=== PATIENT | male | born 1960 | race Caucasian/White ===

== ENCOUNTER → 2018-01-26 17:29 | Outpatient (CLI) | payer OTHER, SELFPAY ==
[2018-01-26 17:34] LABS: Adenovirus F 40/41, stool Not Detected (NotDetected); Astrovirus Not Detected (NotDetected); Campylobacter Not Detected (NotDetected); Cryptosporidium Not Detected (NotDetected); Cyclospora Cayetanesis Not Detected (NotDetected); Entamoeba histolytica Not Detected (NotDetected); Enteroaggregative E coli Not Detected (NotDetected); Enteropathogenic E coli Not Detected (NotDetected); Enterotoxigenic E coli Not Detected (NotDetected); Giardia lamblia Not Detected (NotDetected); Norovirus Not Detected (NotDetected); Plesimonas Shigalloides, PCR Not Detected (NotDetected); Rotavirus A Not Detected (NotDetected); Salmonella, PCR Not Detected (NotDetected); Sapovirus Not Detected (NotDetected); Shiga-like toxin E coli Not Detected (NotDetected); Shigella Enterovasive E coli Not Detected (NotDetected); Vibrio Cholerae Not Detected (NotDetected); Vibrio, PCR Not Detected (NotDetected); Yersinia Entercolitica, PCR Not Detected (NotDetected)
[2018-01-26 21:30] LABS: Clostridium Difficile A/B, PCR Detected (NotDetected)
== END ==
PROVIDERS: Visit Provider Nurse Practitioner
DX: E04.1 Nontoxic single thyroid nodule (principal)
CPT/HCPCS: 87507

== ENCOUNTER → 2018-12-30 10:51 | Outpatient (CLI) | payer OTHER, SELFPAY ==
[2018-12-30 11:20] LABS: Basophils % 0.6 % (0.1-2.0); Eosinophils # 0.3 K/mm3 (0.0-0.4); Eosinophils % 4.9 % (0.1-12.0); Hematocrit 47.9 % (42.0-52.0); Hemoglobin 15.7 g/dL (14.1-18.0); Lymphocytes % 29.4 % (10-50); Mean Corpuscular HGB Conc 32.8 g/dL (31.8-35.4); Mean Corpuscular Hemoglobin 31.1 pg (27.0-31.2); Mean Corpuscular Volume 94.6 fl (80-94); Mean Platelet Volume 7.7 fl (7.4-10.4); Monocytes # 0.4 K/mm3 (0.1-1.0); Monocytes % 5.9 % (1.7-9.3); Neutrophils # 3.9 K/mm3 (1.8-7.8); Neutrophils % 59.2 % (37.0-80.0); Platelet Count 257 K/mm3 (142-424); Red Blood Count 5.06 M/mm3 (4.60-6.20); White Blood Count 6.6 K/mm3 (4.8-10.8)
[2018-12-30 12:49] LABS: Alanine Aminotransferase 22 U/L (12-78); Albumin Level 3.5 gm/dL (3.4-5.0); Albumin/Globulin Ratio 1.3 (1.1-1.8); Alkaline Phosphatase 85 U/L (46-116); Aspartate Amino Transferase 20 U/L (15-37); Bilirubin,Total 0.6 mg/dL (0.2-1.0); Blood Urea Nitrogen 20 mg/dL (7-18); Calcium 8.5 mg/dL (8.5-10.1); Carbon Dioxide 25 mmol/L (21.0-32.0); Chloride 109 mmol/L (98-107); Chol/HDL Ratio 3.2 (1-3.5); Cholesterol 149 mg/dL (140-200); Creatinine,Serum 0.96 mg/dL (0.70-1.30); Estimated Glomerular Filt Rate 80 ml/min (>60); GFR (African American) 97 ML/MIN (>60); Globulin 2.7 gm/dl (1.3-3.2); Glucose 95 mg/dL (74-106); HDL Cholesterol 47 mg/dL (27-67); LDL Cholesterol 92 mg/dL (0-130); Prostate Specific Ag Screen 2.1 ng/mL (0.0-4.0); Sodium 141 mmol/L (136-145); Thyroid Stimulating Hormone 1.66 uIU/ml (0.358-3.740); Total Protein,Serum 6.2 gm/dL (6.4-8.2); Triglycerides 48 mg/dL (30-200); VLDL Cholesterol 10 mg/dL (0-40)
[2018-12-31 18:14] LABS: Vitamin B12 606 pg/mL (232-1245); Vitamin D 25 Hydroxy 33.6 ng/mL (30.0-100.0)
== END ==
PROVIDERS: Visit Provider Family Medicine
DX: R53.83 Other fatigue (principal); Z13.220 Encounter for screening for lipoid disorders; Z12.5 Encounter for screening for malignant neoplasm of prostate
CPT/HCPCS: 36415; 80053; 80061; 82607; 82652; 83655; 84443; 85025; G0103

== ENCOUNTER → 2019-12-29 11:37 | Outpatient (CLI) | payer OTHER, SELFPAY ==
[2019-12-29 14:39] LABS: Chol/HDL Ratio 3.2 (1-3.5); Cholesterol 177 mg/dl (140-200); Glucose,Fasting 99 mg/dl (74-100); HDL Cholesterol 56 mg/dl (40-60); Triglycerides 84 mg/dl (30-150); VLDL Cholesterol 17 mg/dL (0-40)
[2019-12-29 14:51] LABS: Direct LDL Cholesterol 110.38 mg/dL (100-129)
[2019-12-29 15:11] LABS: Prostate Specific Ag, Diagnost 2.44 ng/ml (0.0-4.0)
== END ==
PROVIDERS: Visit Provider Family Medicine
DX: Z13.1 Encounter for screening for diabetes mellitus (principal); Z13.220 Encounter for screening for lipoid disorders; Z12.5 Encounter for screening for malignant neoplasm of prostate
CPT/HCPCS: 36415; 80061; 82947; 84153

== ENCOUNTER → 2020-10-01 14:42 | Outpatient (CLI) | payer OTHER, SELFPAY ==
[2020-10-01 15:51] LABS: Anion Gap 13.8 mEq/L (5-15); Blood Urea Nitrogen 22 mg/dl (9-20); Calcium 9.3 mg/dl (8.4-10.2); Carbon Dioxide 29 mmol/L (22.0-30.0); Chloride 106 mmol/L (98-107); Estimated Glomerular Filt Rate 76 ml/min (>60); GFR (African American) 92 ML/MIN (>60); Glucose 101 mg/dl (74-100); Potassium 4.8 mmoL/L (3.5-5.1); Sodium 144 mmol/L (136-145)
== END ==
PROVIDERS: Visit Provider Urology
DX: R39.198 Other difficulties with micturition (principal)
CPT/HCPCS: 36415; 80048

== ENCOUNTER → 2021-01-08 09:27 | Outpatient (CLI) | payer OTHER, SELFPAY ==
[2021-01-08 10:08] LABS: Basophils # 0.1 K/mm3 (0-0.2); Basophils % 0.5 % (0.1-2.0); Eosinophils # 0.2 K/mm3 (0.0-0.4); Eosinophils % 2.3 % (0.1-12.0); Hematocrit 49.2 % (42.0-52.0); Hemoglobin 16.8 g/dL (14.1-18.0); Lymphocytes # 2.6 K/mm3 (0.7-4.5); Lymphocytes % 25.8 % (10-50); Mean Corpuscular Hemoglobin 31.2 pg (27.0-31.2); Mean Corpuscular Volume 91.8 fl (80-94); Mean Platelet Volume 7.8 fl (7.4-10.4); Monocytes # 0.5 K/mm3 (0.1-1.0); Monocytes % 5.2 % (1.7-9.3); Neutrophils # 6.6 K/mm3 (1.8-7.8); Platelet Count 270 K/mm3 (142-424); Red Blood Count 5.36 M/mm3 (4.60-6.20); Red Cell Distribution Width 13.5 % (11.5-17.5); White Blood Count 10.1 K/mm3 (4.8-10.8)
[2021-01-08 10:41] LABS: Chloride 109 mmol/L (98-107); Sodium 142 mmol/L (136-145)
[2021-01-08 10:42] LABS: Potassium 4.2 mmoL/L (3.5-5.1)
[2021-01-08 10:44] LABS: Alanine Aminotransferase 22 U/L (12-78); Albumin Level 4.1 g/dl (3.5-5.0); Albumin/Globulin Ratio 1.7 (1.1-1.8); Alkaline Phosphatase 99 U/L (38-126); Anion Gap 9.2 mEq/L (5-15); Aspartate Amino Transferase 27 U/L (17-59); Bilirubin,Total 0.7 mg/dl (0.2-1.3); Blood Urea Nitrogen 23 mg/dl (9-20); Calcium 9.4 mg/dl (8.4-10.2); Carbon Dioxide 28 mmol/L (22.0-30.0); Cholesterol 176 mg/dl (140-200); Estimated Glomerular Filt Rate 68 ml/min (>60); GFR (African American) 82 ML/MIN (>60); Globulin 2.4 g/dL (1.3-3.2); Glucose 100 mg/dl (74-100); Magnesium 1.9 mg/dl (1.6-2.3); Phosphorous 3.1 mg/dl (2.5-4.5); Total Protein,Serum 6.5 g/dl (6.3-8.2); Triglycerides 94 mg/dl (30-150); VLDL Cholesterol 19 mg/dL (0-40)
[2021-01-08 10:45] LABS: Chol/HDL Ratio 3.7 (1-3.5); HDL Cholesterol 47 mg/dl (40-60)
[2021-01-08 10:55] LABS: Direct LDL Cholesterol 107.53 mg/dL (100-129)
[2021-01-08 11:15] LABS: Thyroid Stimulating Hormone 2.08 uIU/mL (0.465-4.68)
[2021-01-08 12:16] LABS: Erythrocyte Sedimentation Rate 4 mm/hr (0-20)
== END ==
PROVIDERS: Visit Provider Family Medicine
DX: R07.9 Chest pain, unspecified (principal); R00.2 Palpitations; R03.0 Elevated blood-pressure reading, without diagnosis of hypertension
CPT/HCPCS: 36415; 80053; 80061; 83735; 84100; 84443; 84550; 85025; 85651

== ENCOUNTER → 2021-01-23 13:44 | Outpatient (CLI) | payer OTHER, SELFPAY ==
--- NOTE | 2021-01-23 13:48 | XR_ITS ---
PROCEDURE INFORMATION: Exam: XR Chest Exam date and time: 01/23/2021 1:48 PM Age: 60 years old Clinical indication: Chest wall pain; Additional info: Chest pain TECHNIQUE: Imaging protocol: XR of the chest. Views: 2 views. COMPARISON: No relevant prior studies available. FINDINGS: Lungs: Bilateral hyperinflation is present. No focal pneumonia or pneumothorax. Pleural spaces: There are no pleural effusions present. Heart/Mediastinum: Unremarkable. No cardiomegaly. Bones/joints: The thoracic spine demonstrates mild degenerative changes at multiple levels. IMPRESSION: 1. Bilateral hyperinflation is present. 2. No focal pneumonia or pneumothorax.
--- NOTE | 2021-01-23 14:04 | ECG_ITS ---
APPROVED REPORT Exam: Resting ECG HR:73 bpm ECG Measurements Heart Rate 73 AXES MS 140 P 70 QRSd 96 QRS -72 QT 370 T 31 QTc 407 Conclusion Normal sinus rhythm with sinus arrhythmia Left anterior fascicular block Abnormal ECG Electronically signed by : Cecil Chu MD 01/25/2021 08:40:21
== END ==
PROVIDERS: PCP Family Medicine; Visit Provider Family Medicine
DX: R07.9 Chest pain, unspecified (principal); R00.2 Palpitations; R03.0 Elevated blood-pressure reading, without diagnosis of hypertension
CPT/HCPCS: 71046; 93005

== ENCOUNTER → 2021-12-22 10:18 | Outpatient (CLI) | payer OTHER, SELFPAY ==
[2021-12-22 11:48] LABS: Alanine Aminotransferase 19 U/L (12-78); Albumin/Globulin Ratio 1.7 (1.1-1.8); Alkaline Phosphatase 102 U/L (38-126); Anion Gap 12.9 mEq/L (5-15); Aspartate Amino Transferase 27 U/L (17-59); Bilirubin,Total 0.7 mg/dl (0.2-1.3); Blood Urea Nitrogen 19 mg/dl (9-20); Calcium 9.8 mg/dl (8.4-10.2); Carbon Dioxide 30 mmol/L (22.0-30.0); Chloride 104 mmol/L (98-107); Chol/HDL Ratio 3.3 (1-3.5); Cholesterol 159 mg/dl (140-200); Estimated Glomerular Filt Rate 68 ml/min (>60); GFR (African American) 82 ML/MIN (>60); Globulin 2.3 g/dL (1.3-3.2); Glucose 97 mg/dl (74-100); HDL Cholesterol 48 mg/dl (40-60); Potassium 4.9 mmoL/L (3.5-5.1); Sodium 142 mmol/L (136-145); Total Protein,Serum 6.3 g/dl (6.3-8.2); Triglycerides 67 mg/dl (30-150); VLDL Cholesterol 13 mg/dL (0-40)
[2021-12-22 11:59] LABS: Direct LDL Cholesterol 94.66 mg/dL (100-129)
[2021-12-22 12:19] LABS: Prostate Specific Ag Screen 2.6 ng/ml (0.0-4.0)
== END ==
PROVIDERS: PCP Family Medicine; Visit Provider Family Medicine
DX: Z00.00 Encounter for general adult medical examination without abnormal findings (principal); Z12.5 Encounter for screening for malignant neoplasm of prostate
CPT/HCPCS: 36415; 80053; 80061; G0103

== ENCOUNTER → 2022-07-28 23:37 | Outpatient (CLI) | payer OTHER, SELFPAY ==
[2022-07-28 17:59] LABS: Basophils % 0.6 % (0.1-2.0); Eosinophils # 0.2 K/mm3 (0.0-0.4); Hematocrit 51.8 % (42.0-52.0); Hemoglobin 16.8 g/dL (14.1-18.0); Lymphocytes # 2.2 K/mm3 (0.7-4.5); Lymphocytes % 30.7 % (10-50); Mean Corpuscular HGB Conc 32.4 g/dL (31.8-35.4); Mean Corpuscular Hemoglobin 29.9 pg (27.0-31.2); Mean Corpuscular Volume 92.3 fl (80-94); Mean Platelet Volume 9.2 fl (7.4-10.4); Monocytes # 0.5 K/mm3 (0.1-1.0); Monocytes % 7.3 % (1.7-9.3); Neutrophils # 4.2 K/mm3 (1.8-7.8); Neutrophils % 58.4 % (37.0-80.0); Platelet Count 252 K/mm3 (142-424); Red Blood Count 5.61 M/mm3 (4.60-6.20); Red Cell Distribution Width 13.4 % (11.5-17.5); White Blood Count 7.2 K/mm3 (4.8-10.8)
[2022-07-28 18:02] LABS: Alanine Aminotransferase 22 U/L (12-78); Albumin Level 4.2 g/dl (3.5-5.0); Albumin/Globulin Ratio 1.5 (1.1-1.8); Alkaline Phosphatase 101 U/L (38-126); Anion Gap 14.3 mEq/L (5-15); Aspartate Amino Transferase 31 U/L (17-59); Bilirubin,Total 0.7 mg/dl (0.2-1.3); Blood Urea Nitrogen 17 mg/dl (9-20); Calcium 9.1 mg/dl (8.4-10.2); Carbon Dioxide 25 mmol/L (22.0-30.0); Chloride 107 mmol/L (98-107); Chol/HDL Ratio 3.1 (1-3.5); Cholesterol 172 mg/dl (140-200); Estimated Glomerular Filt Rate 75 ml/min (>60); GFR (African American) 91 ML/MIN (>60); Globulin 2.8 g/dL (1.3-3.2); Glucose 98 mg/dl (74-100); HDL Cholesterol 56 mg/dl (40-60); Potassium 4.3 mmoL/L (3.5-5.1); Sodium 142 mmol/L (136-145); Triglycerides 80 mg/dl (30-150); VLDL Cholesterol 16 mg/dL (0-40)
[2022-07-28 18:14] LABS: Direct LDL Cholesterol 98.34 mg/dL (100-129)
[2022-07-28 18:19] LABS: Hemoglobin A1C 5.4 % (4.0-6.0)
[2022-07-28 18:33] LABS: Thyroid Stimulating Hormone 1.72 uIU/mL (0.465-4.68)
== END ==
PROVIDERS: PCP Student in an Organized Health Care Education/Training Program; Visit Provider Student in an Organized Health Care Education/Training Program
DX: R22.0 Localized swelling, mass and lump, head (principal); Z13.220 Encounter for screening for lipoid disorders; E55.9 Vitamin D deficiency, unspecified; Z13.29 Encounter for screening for other suspected endocrine disorder; Z13.1 Encounter for screening for diabetes mellitus
CPT/HCPCS: 80053; 80061; 82306; 83036; 84443; 85025

== ENCOUNTER → 2022-09-09 23:42 | Outpatient (CLI) | payer MEDICAID, SELFPAY | PROVIDERS: PCP Nurse Practitioner Family; Visit Provider Nurse Practitioner Family | DX: N39.0 Urinary tract infection, site not specified (principal); B95.2 Enterococcus as the cause of diseases classified elsewhere | CPT/HCPCS: 87086; 87088; 87186 ==

== ENCOUNTER → 2023-01-22 08:34 | Outpatient (CLI) | payer OTHER, SELFPAY | PROVIDERS: PCP Student in an Organized Health Care Education/Training Program; Visit Provider Student in an Organized Health Care Education/Training Program | DX: R82.90 Unspecified abnormal findings in urine (principal); B95.7 Other staphylococcus as the cause of diseases classified elsewhere | CPT/HCPCS: 87086 ==

== ENCOUNTER 2023-05-06 18:52 | Outpatient (CLI) | payer OTHER, SELFPAY | END 2023-05-06 23:59 | LOC: LAB.DROPOF 18:52 | PROVIDERS: PCP Student in an Organized Health Care Education/Training Program; Visit Provider Student in an Organized Health Care Education/Training Program | DX: N39.0 Urinary tract infection, site not specified (principal); R31.9 Hematuria, unspecified; B96.89 Other specified bacterial agents as the cause of diseases classified elsewhere | CPT/HCPCS: 87086 ==

== ENCOUNTER 2023-06-09 18:00 | Outpatient (CLI) | payer OTHER, SELFPAY | END 2023-06-09 23:59 | disposition home or self-care (01) | LOC: LAB.DROPOF 06-10 10:06 | PROVIDERS: PCP Internal Medicine; Visit Provider Internal Medicine | DX: N39.0 Urinary tract infection, site not specified (principal); R31.9 Hematuria, unspecified | CPT/HCPCS: 87086 ==

== ENCOUNTER 2023-06-11 11:36 | Outpatient (CLI) | payer OTHER, SELFPAY ==
[2023-06-11 12:16] LABS: Basophils # 0.1 K/mm3 (0-0.2); Eosinophils # 0.2 K/mm3 (0.0-0.4); Eosinophils % 2.4 % (0.1-12.0); Hematocrit 51.6 % (42.0-52.0); Hemoglobin 16.9 g/dL (14.1-18.0); Lymphocytes % 28.8 % (10-50); Mean Corpuscular HGB Conc 32.8 g/dL (31.8-35.4); Mean Corpuscular Hemoglobin 31.3 pg (27.0-31.2); Mean Corpuscular Volume 95.3 fl (80-94); Mean Platelet Volume 8.2 fl (7.4-10.4); Monocytes # 0.5 K/mm3 (0.1-1.0); Monocytes % 6.7 % (1.7-9.3); Neutrophils # 4.2 K/mm3 (1.8-7.8); Platelet Count 248 K/mm3 (142-424); Red Blood Count 5.42 M/mm3 (4.60-6.20); Red Cell Distribution Width 13.7 % (11.5-17.5); White Blood Count 6.9 K/mm3 (4.8-10.8)
[2023-06-11 12:58] LABS: Alanine Aminotransferase 23 U/L (12-78); Albumin/Globulin Ratio 1.7 (1.1-1.8); Alkaline Phosphatase 90 U/L (38-126); Anion Gap 9.4 mEq/L (5-15); Aspartate Amino Transferase 34 U/L (17-59); Bilirubin,Total 1.1 mg/dl (0.2-1.3); Blood Urea Nitrogen 20 mg/dl (9-20); Calcium 9.3 mg/dl (8.4-10.2); Carbon Dioxide 27 mmol/L (22.0-30.0); Chloride 109 mmol/L (98-107); Chol/HDL Ratio 3.3 (1-3.5); Cholesterol 173 mg/dl (140-200); Estimated Glomerular Filt Rate 67 ml/min (>60); GFR (African American) 82 ML/MIN (>60); Globulin 2.3 g/dL (1.3-3.2); Glucose 90 mg/dl (74-100); HDL Cholesterol 52 mg/dl (40-60); Potassium 4.4 mmoL/L (3.5-5.1); Sodium 141 mmol/L (136-145); Total Protein,Serum 6.3 g/dl (6.3-8.2); Triglycerides 77 mg/dl (30-150); VLDL Cholesterol 15 mg/dL (0-40)
[2023-06-11 13:09] LABS: Direct LDL Cholesterol 107.55 mg/dL (100-129)
[2023-06-11 13:16] LABS: 25-OH Vitamin D, Total 36.8 ng/mL (30-100)
[2023-06-11 13:29] LABS: Prostate Specific Ag Screen 4.1 ng/ml (0.0-4.0); Thyroid Stimulating Hormone 0.98 uIU/mL (0.465-4.68)
[2023-06-11 13:48] LABS: Vitamin B12 869 pg/mL (239-931)
[2023-06-11 16:06] LABS: Hemoglobin A1C 5.7 % (4.0-6.0)
== END 2023-06-11 23:59 | disposition home or self-care (01) ==
LOC: LAB 11:37
PROVIDERS: PCP Internal Medicine; Visit Provider Internal Medicine
DX: R53.83 Other fatigue (principal); R10.10 Upper abdominal pain, unspecified; N39.0 Urinary tract infection, site not specified; R03.0 Elevated blood-pressure reading, without diagnosis of hypertension; N40.1 Benign prostatic hyperplasia with lower urinary tract symptoms; Z12.5 Encounter for screening for malignant neoplasm of prostate
CPT/HCPCS: 36415; 80053; 80061; 82306; 82607; 83036; 84443; 85025; G0103

== ENCOUNTER 2023-07-16 11:30 | Outpatient (CLI) | payer OTHER, SELFPAY | END 2023-07-16 23:59 | disposition home or self-care (01) | LOC: LAB.DROPOF 07-17 11:30 | PROVIDERS: PCP Student in an Organized Health Care Education/Training Program; Visit Provider Student in an Organized Health Care Education/Training Program | DX: N39.0 Urinary tract infection, site not specified (principal); R31.9 Hematuria, unspecified | CPT/HCPCS: 87086 ==

== ENCOUNTER 2023-08-13 15:21 | Outpatient (CLI) | payer OTHER, SELFPAY ==
[2023-08-15 08:10] LABS: PSA, Free 0.55 ng/mL; Prostate Specific Ag 3.6 ng/mL (0.0-4.0)
== END 2023-08-13 23:59 | disposition home or self-care (01) ==
LOC: LAB 15:22
PROVIDERS: PCP Internal Medicine; Visit Provider Urology
DX: N40.1 Benign prostatic hyperplasia with lower urinary tract symptoms (principal); R35.0 Frequency of micturition; N39.0 Urinary tract infection, site not specified
CPT/HCPCS: 36415; 84153; 84154

== ENCOUNTER 2024-10-26 09:57 | Outpatient (CLI) | payer MEDICARE, BC, SELFPAY ==
--- OUTSIDE RECORDS SUMMARY | 2024-10-26 10:14 | XMS_ITS | Encounter Summary ---
Author Organization [place] [address] Care Team Providers Care Air Quality Technician Name Role Phone Eren Cardenas Primary Care Provider Unavail able Encounter Details Date Type Department Care Team (Late st Contact Info) Description 10/25/2024 Orders Only [facility] [address] [place] [address] Ivonne Maria RMA Lipid screening (Primary Dx); Thyroid disorder screen; Vitamin D deficiency; Impaired fasting glucose; Screening for iron deficiency anemia; Need for hepatitis C screening test; Prostate cancer screening Social History Tobacco Use Types Packs/Day Years Used Date Smoking Tobacco: Never Smokeless Tobacco: Never Alcohol Use Standard Drinks/Week Comments No 0 (1 standard drink = 0.6 oz pur e alcohol) Sex and Gender Information Value Date Recorded Sex Assigned at Not on file Legal Sex Male 5:47 PM EDT Gender Identity Not on file Sexual Orientation Not on file documented as of this encounter Plan of Treatment Upcoming Encounters Date Type Department Care Team (Late Contact Info) Description 11/01/2024 11:45 AM EDT Office Visit [facility] [address] [place] [address] David Tilley MD [address] [place] [address] Scheduled Orders Name Type Priority Associated Diagnoses Orde r Schedule LIPID PANEL REFLEX Lab Routine Lipid screening 1 Occurrences starting 10/25/2024 until 10/25/2025 TSH REFLEX TO FT4 Lab Routine Thyroid disorder screen 1 Occurrences starting 10/25/2024 until 10/25/2025 HEMOGLOBIN A1C Lab Routine Impaired fasting glucose 1 Occurrences starting 10/25/2024 until 10/25/2025 COMPREHENSIVE METABOLIC PANEL Lab Routine Lipid screening 1 Occurrences starting 10/25/2024 until 10/25/2025 CBC Lab Routine Screening for iron deficiency anemia 1 Occurrences starting 10/25/2024 until 10/25/2025 HCV ANTIBODY SCREEN W/ REFLEX Lab Routine Need for hepatitis C screening test 1 Occurrences starting 10/25/2024 until 10/25/2025 PROSTATE SPECIFIC ANTIGEN (SCREENING) Lab Routine Prostate cancer screening 1 Occurrences starting 10/25/2024 until 10/25/2025 documented as of this encounter Goals Goal Patient Goal Type Associated Problems Recent Progress Patient-Stated? Author Maintain a healthy diet, exercise regularly and maintain an ideal body weight General No Ivonne Maria, RMA documented as of this encounter Visit Diagnoses Diagnosis Lipid screening- Primary Screening for lipoid disorders Thyroid disorder screen Screening for thyroid disorder Vitamin D deficiency Unspecified vitamin D deficiency Impaired fasting glucose Screening for iron deficiency anemia Need for hepatitis C screening test Special screening examination for other specified viral diseases Prostate cancer screening Special screening for malignant neoplasm of prostate documented in this encounter Care Teams Air Quality Technician Relationship Specialty Start Date End Date Eren Cardenas [address] [place] [address] [address] [place] [address] PCP - General Internal Medicine-Adolescent Medicine 07/19/12 documented as of this encounter
--- OUTSIDE RECORDS SUMMARY | 2024-10-26 10:14 | XMS_ITS | Clinical Summary ---
Author Organization [facility] Address [facility] [place] [address] Phone Care Team Providers Care Associate Designer Name Role Phone Eren Cardenas Primary Care Provider Unavail able Allergies Active Allergy Reactions Criticality Noted Date Comments Lactose Intolerance (Lactase) Diarrhea 12/20/2014 Acetaminophen Other (See Comments) 05/19/2024 CAUSES MOUTH SORES Whey Diarrhea 10/29/2020 Dietary Medications multivitamin with folic acid (THERAGRAN) 400 mcg Oral Tablet Take 1 Tablet by mouth daily. MVI Active fish oil omega 3-dha-epa 300-1,000 mg Oral Capsule, Delayed Release(E.C.) Take 2 g by mouth daily. Active cholecalciferol , vitamin D3, 25 mcg (1,000 unit) Oral Tablet Take 1 Tablet by mouth daily. Active aspirin 81 mg Oral Tablet, Chewable Take 81 mg by mouth daily as needed for Pain. Active oxyCODONE-aceta minophen (PERCOCET) 5-325 mg Oral Tablet Take 1-2 Tablets by mouth every 4 hours as needed for Acute Pain (R52). 36 Tablet 1 Active Additional Information Patient not taking.Reason: Therapy Completed, Reported on 05/19/2024 ibuprofen (ADVIL;MOTRIN) 100 mg/5 mL Oral Suspension Take 10 mg/kg by mouth every 8 hours as needed for Fever. Active methylPREDNISol one (MEDROL DOSPACK) 4 mg Oral Tablets, Dose PackIndications :Radiculopathy of cervical region follow package directions 1 Each 5 Active Additional Information Patient not taking.Reason: Therapy Completed, Reported on 05/19/2024 lactobacillus rhamnosus, GG, (CULTURELLE) 10 billion cell Oral Capsule Take 1 Capsule by mouth daily. Active diazePAM (VALIUM) 5 mg Oral TabletIndicatio ns:DDD (degenerative disc disease), cervical Take 1 tablet by mouth 2 hours prior to prior to procedure, take additional 1 tablet 1 hour prior to procedure, if needed 2 Tablet Active Additional Information Patient not taking.Reason: Therapy Completed, Reported on 05/19/2024 gabapentin (NEURONTIN) 300 mg Oral Capsule Take by mouth 3 times daily. Active pregabalin (LYRICA) 75 mg Oral Capsule Take 75 mg by mouth 2 times daily. Active Active Problems Problem Noted Date Diagnosed Date Rupture of distal biceps tendon, left, initial e ncounter 12/05/2020 Overview (12/05/2020): Added automatically from request for surgery [id number] Urinary retention 10/25/2020 Overview (10/25/2020): Added automatically from request for surgery [id number] Chronic calculous cholecystitis 12/25/2014 Encounters Date Type Department Care Team Description 10/25/2024 Orders Only [facility] [address] [place] [address] Ivonne Maria, A Lipid screening (Primary Dx); Thyroid disorder screen; Vitamin D deficiency; Impaired fasting glucose; Screening for iron deficiency anemia; Need for hepatitis C screening test; Prostate cancer screening from Last 3 Months Surgical History Surgery Date Site/Laterality Comments NASAL SEPTUM SURGERY 02/15/1987 - 02/15/1988 DENTAL SURGERY HAND SURGERY right forearm ORIF CHOLECYSTECTOMY, LAPAROSCOPIC 12/25/2014 Abdomen/N/A LAPAROSCOPIC CHOLECYSTECTOMY; Surgeon: La Shultz MD; Location: [facility] MAIN OR; Service: General CYSTOSCOPY 10/31/2020 N/A CYSTOSCOPY; Surgeon: Aashish Barboza MD; Location: [facility]; Service: Urology BICEPS TENDON REPAIR 12/09/2020 Arm Upper/Left LEFT OPEN DISTAL BICEPS TENDON REPAIR ; Surgeon: Joan Aldridge MD; Location: [facility] OR; Service: Hand Medical devices from this surgery are in the Medical Devices section. 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/DAY DUE TO WEAK BLEDDER Arthritis Family History Medical History Relation Name Comments Cancer Mother Diabetes Mother Anesth Problems Neg Hx Relation Name Status Comments Father Mother Social History Tobacco Use Types Packs/Day Years Used Date Smoking Tobacco: Never Smokeless Tobacco: Never Alcohol Use Standard Drinks/Week Comments No 0 (1 standard drink = 0.6 oz pur e alcohol) Sex and Gender Information Value Date Recorded Sex Assigned at Not on file Legal Sex Male 5:47 PM EDT Gender Identity Not on file Sexual Orientation Not on file Obstetrics History Last Filed Vital Signs Vital Sign Reading Time Taken Comments Blood Pressure 143/93 06/02/2024 12:01 PM EDT Pulse 63 06/02/2024 12:01 PM EDT Temperature 35.9 C (96.6 F) 06/02/2024 11:35 AM EDT Respiratory Rate 16 06/02/2024 12:01 PM EDT Oxygen Saturation 98% 06/02/2024 12:01 PM EDT Inhaled Oxygen Concentration - - Weight 82.6 kg (182 lb) 06/02/2024 7:36 AM EDT Height 177.8 cm (5' 10 ) 06/02/2024 7:36 AM EDT Body Mass Index 26.11 06/02/2024 7:36 AM EDT Plan of Treatment Upcoming Encounters Date Type Department Care Team (Late st Contact Info) Description 11/01/2024 11:45 AM EDT Office Visit [facility] [address] [place] [address] David Tilley MD [address] [place] [address] Health Maintenance Due Date Last Done Comments Wellness Exam Medicare 1963 Hepatitis C Screening 1976 DTaP/TDaP/Td (1 - Tdap) 1977 Cologuard 12/12/2003 Colon Cancer Screening 12/12/2003 Colonoscopy 12/12/2003 FIT 12/12/2003 Sigmoidoscopy 12/12/2003 Virtual Colonography 12/12/2003 Pneumococcal Vaccine 50+ (1 of 1 - PCV) 2008 Zoster (1 of 2) 2008 COVID-19 Vaccine (1 - 2023-2 5 season) 2024 Influenza Vaccine (#1) 2024 , 01/14/2023, 12/16/2016 Hepatitis B Vaccine Aged Out No longe r eligible based on patient's age to complete this topic Meningococcal B Vaccine Aged Out No l onger eligible based on patient's age to complete this topic Goals Goal Patient Goal Type Associated Problems Recent Progress Patient-Stated? Author Maintain a healthy diet, exercise regularly and maintain an ideal body weight General No Ivonne Maria, RMA Medical Devices Implanted Type Area Senior Associate Device Identifier Shelf Expiration Date Model / Serial / Lot Log [id number] - [employer] Modular Mini Fragment Tray - 1 - Screw Cortex 2.7mm X 14mm Self Tapping With T8 Stardrive Recess Stainless Steel Implanted:Qty: 1 on 07/20/2012 at [facility] Right: Mobile [employer]: [employer] 202.874 / / Log [id number] - [employer] Modular Mini Fragment Tray - 1 - Screw Cortex 2.7mm X 16mm Self Tapping With T8 Stardrive Recess Stainless Steel Implanted:Qty: 2 on 07/20/2012 at [facility] Right: [employer]: [employer] 202.876 / / Log [id number] - [employer] Modular Mini Fragment Tray - 1 - Screw Cortex 2.7mm X 18mm Self Tapping With T8 Stardrive Recess Stainless Steel Implanted:Qty: 2 on 07/20/2012 at [facility] Right: Mobile [employer]: [employer] 202.878 / / Log [id number] - [employer] Modular Mini Fragment Tray - 1 - Screw Locking 2.7mm X 16mm Self Tapping With T8 Stardrive Recess Implanted:Qty: 1 on 07/20/[address] [facility] [employer]: [employer] 202.216 / / Log [id number] - S[employer] Modular Mini Fragment Tray - 1 - Plate Lcp 2.7mm X 67mm 7-Hole Implanted:Qty: 1 on 07/20/2012 at [facility] Right: Dez [employer]: [employer] 249.683 / / Kt Shldr W/Ac 18in Ntnl Sut Pss Wire F/Dist Bicp Rpr - [id number] Implanted:Qty: 1 on 12/09/2020 by Joan Aldridge MD at [facility] Left: Arm [employer] [id number] 09/14/2025 [id number] / / [id number] Insurance MEDICARE [place] [address] [place] [address] MEDICARE SUPPLEMENT [facility] MEDICARE SUPPLEMENT MEDICARE [place] PART A AND B Care Teams Associate Designer Relationship Specialty Start Date End Date Eren Cardenas [address] [place] [address] PCP - General Internal Medicine-Adolescent Medicine 07/19/12
[2024-10-26 10:51] LABS: Hematocrit 49.2 % (42.0-52.0); Hemoglobin 16.6 g/dL (14.1-18.0); Immature Granulocytes % 0.3 %; Mean Corpuscular HGB Conc 33.7 g/dL (31.8-35.4); Mean Corpuscular Hemoglobin 30.5 pg (27.0-31.2); Mean Corpuscular Volume 90.3 fl (80-94); Nucleated Red Blood Cells % 0 %; Platelet Count 242 K/mm3 (142-424); Red Blood Count 5.45 M/mm3 (4.60-6.20); Red Cell Distribution Width-SD 43.0 fL; White Blood Count 7.3 K/mm3 (4.8-10.8)
[2024-10-26 11:16] LABS: Alanine Aminotransferase 18 U/L (12-78); Albumin Level 3.9 g/dl (3.5-5.0); Albumin/Globulin Ratio 1.6 (1.1-1.8); Alkaline Phosphatase 75 U/L (38-126); Anion Gap 9.4 mEq/L (5-15); Aspartate Amino Transferase 23 U/L (17-59); Bilirubin,Total 0.6 mg/dl (0.2-1.3); Blood Urea Nitrogen 21 mg/dl (9-20); Calcium 9.1 mg/dl (8.4-10.2); Carbon Dioxide 27 mmol/L (22.0-30.0); Chloride 109 mmol/L (98-107); Cholesterol 175 mg/dl (140-200); Creatinine,Serum 1.10 mg/dl (0.66-1.25); Estimated Glomerular Filt Rate 67 ml/min (>60); GFR (African American) 81 ML/MIN (>60); Globulin 2.5 g/dL (1.3-3.2); Glucose 99 mg/dl (74-100); HDL Cholesterol 42 mg/dl (40-60); Potassium 4.4 mmoL/L (3.5-5.1); Sodium 141 mmol/L (136-145); Total Protein,Serum 6.4 g/dl (6.3-8.2); Triglycerides 83 mg/dl (30-150)
[2024-10-26 11:33] LABS: Free T4 (Free Thyroxine) 0.99 ng/dl (0.78-2.19)
[2024-10-26 11:38] LABS: Hemoglobin A1C 5.7 % (4.0-6.0)
[2024-10-26 11:47] LABS: Thyroid Stimulating Hormone 2.03 uIU/mL (0.465-4.68)
[2024-10-26 12:50] LABS: Hepatitis C Ab Qual. W/ RFX NEGATIVE (Negative)
== END 2024-10-26 23:59 | disposition home or self-care (01) ==
LOC: LAB 10:01
PROVIDERS: PCP Family Medicine; Visit Provider Family Medicine
DX: Z00.00 Encounter for general adult medical examination without abnormal findings (principal); R73.01 Impaired fasting glucose; Z12.5 Encounter for screening for malignant neoplasm of prostate; R53.83 Other fatigue; Z13.220 Encounter for screening for lipoid disorders; Z13.29 Encounter for screening for other suspected endocrine disorder; Z13.0 Encounter for screening for diseases of the blood and blood-forming organs and certain disorders involving the immune mechanism; Z11.59 Encounter for screening for other viral diseases
CPT/HCPCS: 36415; 80053; 80061; 83036; 84439; 84443; 85025; 86803; G0103

== ENCOUNTER 2024-12-27 13:06 | Outpatient (CLI) | payer MEDICARE, BC, SELFPAY ==
--- OUTSIDE RECORDS SUMMARY | 2024-11-01 10:45 | XMS_ITS | Encounter Summary ---
Author Organization [place] [address] Care Team Providers Care Ultrasonic Cleaner Name Role Phone Eren Cardenas Primary Care Provider Unavail able Reason for Referral * Consultation (Routine) - Authorization Not Needed Specialty Diagnoses / Procedures Referred By Contact Referred To Contact Internal Medicine-Gastroenterology / Gastroenterology Diagnoses Colon cancer screening Pharyngeal dysphagia Procedures TX OFFICE/OUTPATIENT NEW MODERATE [place] [address] [place] [address] Phone: tel: fax: [facility] [address] [place] [address] Phone: tel:[phone] fax:[phone] Referral ID Status Reason Start Date Expiration Date Visits Requested Visits Authorized [id number] Authorization Not Needed Specialty Services Required 5 05/01/2026 99 99 Question Answer Is this referral for colon cancer screening? No Provider Options First Available * Consultation (Routine) - Authorization Not Needed Specialty Diagnoses / Procedures Referred By Contac t Referred To Contact Diagnoses Neurogenic bladder Urinary retention Elevated PSA Procedures TX OFFICE/OUTPATIENT NEW MODERATE [place]DM [place] [address] [place] [address] Phone: tel: fax: Néstor He MD [address] [facility] [address] [place] [address] Phone: tel: fax: Referral ID Status Reason Start Date Expiration Date Visits Requested Visits Authorized [id number] Authorization Not Needed 11/01/2024 11/01/2025 99 99 Reason for Visit * Reason Comments Annual Exam New Patient Encounter Details Date Type Department Care Team (Late st Contact Info) Description 11/01/2024 11:45 AM EDT Office Visit [facility] [address] [place] [id number] David Tilley MD [address] [place] [address] Welcome to Medicare preventive visit (Primary Dx); Encounter to establish care with new doctor; Neurogenic bladder; Urinary retention; Elevated PSA; Primary insomnia; Pharyngeal dysphagia; Colon cancer screening; Need for pneumococcal vaccination Social History Tobacco Use Types Packs/Day Years Used Date Smoking Tobacco: Never Smokeless Tobacco: Never Tobacco Cessation:Counseling Given: Not Answered Alcohol Use Standard Drinks/Week Comments No 0 (1 standard drink = 0.6 oz pur e alcohol) PHQ-2 Answer Date Recorded PHQ-2 Total Score 0 11/01/2024 Sex and Gender Information Value Date Recorded Sex Assigned at Not on file Legal Sex Male 5:47 PM EDT Gender Identity Not on file Sexual Orientation Not on file documented as of this encounter Last Filed Vital Signs Vital Sign Reading Time Taken Comments Blood Pressure 128/76 11/01/2024 12:03 PM EDT Pulse 68 11/01/2024 12:03 PM EDT Temperature 36.8 C (98.2 F) 11/01/2024 12:03 PM EDT Respiratory Rate 18 11/01/2024 12:03 PM EDT Oxygen Saturation 99% 11/01/2024 12:03 PM EDT Inhaled Oxygen Concentration - - Weight 85.3 kg (188 lb) 11/01/2024 12:03 PM EDT Height 177.8 cm (5' 10 ) 11/01/2024 12:03 PM EDT Body Mass Index 26.98 11/01/2024 12:03 PM EDT documented in this encounter Functional Status * Cognitive and Functional Status Question Answer Date of Assessment Author Is the person deaf or does he/she have serious difficulty hearing? No 11/01/2024 12:00 PM EDT Ivonne Maria RMA Is the person blind or does he/she have serious difficulty seeing even when wearing glasses? No 11/01/2024 12:00 PM EDT Ivonne Maria RMA Does this person have seriou s difficulty walking or climbing stairs? No 11/01/2024 12:00 PM EDT Ivonne Maria RMA Does this person have difficulty dressing or bathing? No 11/01/2024 12:00 PM EDT Ivonne Maria RMA * Is the person deaf or does he/she have serious difficulty hearing? Answer Date of Assessment Author No 11/01/2024 12:00 PM EDT Ivonne Maria RMA * Is the person blind or does he/she have serious difficulty seeing even when wearing glasses? Answer Date of Assessment Author No 11/01/2024 12:00 PM EDT Ivonne Maria RMA * Does this person have serious difficulty walking or climbing stairs? Answer Date of Assessment Author No 11/01/2024 12:00 PM EDT Ivonne Maria RMA * Does this person have difficulty dressing or bathing? Answer Date of Assessment Author No 11/01/2024 12:00 PM EDT Ivonne Maria RMA * Because of a physical, mental or emotional condition, does this person have difficulty doing errands alone such as visiting a doctor's office or shopping? Answer Date of Assessment Author No 11/01/2024 12:00 PM Ivonne Mata RMA * PHQ-9 Total Score Answer Date of Assessment Author 0 11/01/2024 12:00 PM JASPREETT Ivonne Maria RMA * Question Answer Date of Assessment Author Little interest or pleasure in doing things 0 11/01/2024 12:00 PM Ivonne Mata RMA Feeling down, depressed, or hopeless 0 11/01/2024 12:00 PM EDT Ivonne Maria RMA PHQ-2 Total Score 0 11/01/2024 12:00 PM EDT Ivonne Maria RMA * PHQ-2 Total Score Answer Date of Assessment Author 0 11/01/2024 12:00 PM EDT Ivonne Maria RMA * Question Answer Date of Assessment Author Feeling Nervous, Anxious, or on Edge 0 11/01/2024 12:00 PM EDT Ivonne Maria RMA Not Being Able to Stop or Control Worrying 0 11/01/2024 12:00 PM EDT Ivonne Maria RMA Worrying too Much About Different Things 0 11/01/2024 12:00 PM EDT Ivonne Maria RMA Trouble Relaxing 0 11/01/2024 12:00 PM EDT Ivonne Maria RMA Being so Restless That it is Hard to Sit Still 0 11/01/2024 12:00 PM EDT Ivonne Maria RMA Becoming Easily Annoyed or Irritable 0 11/01/2024 12:00 PM EDT Ivonne Maria RMA Feeling Afraid as if Somethi ng Awful Might Happen 0 11/01/2024 12:00 PM EDT Ivonne Maria RMA CARLITO-7 Total Score 0 11/01/2024 12:00 PM EDT Ivonne Maria RMA documented as of this encounter Mental Status * Cognitive and Functional Status Question Answer Entry Date Author Because of a physical, menta l or emotional condition, does this person have difficulty doing errands alone such as visiting a doctor's office or shopping? No 11/01/2024 12:00 PM EDT Ivonne Maria RMA Because of a physical, menta l or emotional condition, does this person have serious difficulty concentrating, remembering or making decisions? No 11/01/2024 12:00 PM EDT Ivonne Maria RMA * Because of a physical, mental or emotional condition, does this person have serious difficulty concentrating, remembering or making decisions? Answer Entry Date Author No 11/01/2024 12:00 PM EDT Ivonne Maria RMA documented in this encounter Ordered Prescriptions Prescription Sig Dispense Quantity Refills Last Filled Start Date End Date omeprazole (PRILOSEC) 40 mg Oral Capsule, Delayed Release(E.C.)Indic ations:Pharyngeal dysphagia Take 1 Capsule by mouth daily. 90 Capsule 11/01/2024 traZODone (DESYREL) 50 mg Oral TabletIndications: Primary insomnia Take 1-2 Tablets by mouth nightly as needed for Sleep. 60 Tablet 5 11/01/2024 documented in this encounter Progress Notes * David Tilley MD - 11/01/2024 11:45 AM EDT Chief Complaint Patient presents with Annual Exam New Patient SUBJECTIVE: Andre is a 63 y.o. male here for Initial Medicare Wellness Assessment and physical. New patient here to establish care Additional concerns: Discuss recent labs ROS: Review of Systems HENT: Negative. Respiratory: Negative. Cardiovascular: Negative. Gastrointestinal: Negative. Genitourinary: Negative. Musculoskeletal: Negative. Neurological: Negative. Psychiatric/Behavioral: Negative. Patient Care Team: Eren Cardenas as PCP - General (Internal Medicine-Adolescent Medicine) Health Maintenance Topic Date Due Wellness Exam Medicare Never done Hepatitis C Screening Never done DTaP/TDaP/Td (1 - Tdap) Never done Colon Cancer Screening Never done Zoster (1 of 2) Never done COVID-19 Vaccine ( - 2023- season) 2024 Influenza Vaccine (1) 11/02/2024 (Originally 10/16/2024) Pneumococcal Vaccine 50+ Completed Meningococcal B Vaccine Aged Out Hepatitis B Vaccine Aged Out No results found. Past medical history, Social history, family history, allergies and medications reviewed and updated as part of today's encounter. Fall Risk Assessment Has the patient had any fall with injury in the past year?: No Has the patient had 2 or more falls in the past year?: No Is the patient able to sit without assistance?: Yes Is the patient able to get up without assistance?: Yes Does the patient have a difficult time ambulating when first getting up?: No Does the patient have rugs or runners in the home?: (!) Yes Does the patient have grab bars in the bathroom?: (!) No Does the patient have handrails for all inside or outside stairs?: Yes Does the patient have stairs inside or outside of the home?: (!) Yes (In Office Assessment Only): Is the patient able to ambulate without assistance/device and with a gait steady?: Yes (In Office Assessment Only): TUG test: Time patient going from sitting to standing, walk 10 feet, return to chair and sit. Record time. : Less or equal to 12 seconds Functional Status Assessment Functional Level: self care Functional Mobility Assessment: independent w/o assist device Assessment of transportation needs: still drives most of the time Functional Activities of Daily Living Limitations: No issues Activities of Daily Living Assistive Device Assessment Assistive Devices: Eyeglasses Rx Osteoporosis Screening Assessment Has the patient had a DEXA (Bone Density) scan in the past 2 years?: Not applicable (male) No results found for this or any previous visit. Abnormal Pains Assessment Excluding what you would consider normal aches and pains for your age and medical condition, do youhave any unusual or worrisome pains?: No PHQ Depression Screening Results Little interest or pleasure in doing things: 0 Feeling down, depressed, or hopeless: 0 PHQ-2 Total Score: 0 PHQ-9 Total Score: 0 Advanced Directive Evaluation Does the patient have an Advance Directive?: (!) No Advance Care Planning Guide Given?: (!) No (For Dementia Screening below can use either AD-8 or Mini Cog. Doesn't require both.) AD-8 Dementia Screening tool results Problems with judgement: 0 Less interest in hobbies/activities: 0 Repeats the same things over and over: 0 Trouble learning how to use a tool, appliance or gadget: 0 Forgets correct month or year: 0 Trouble handling complicated financial affairs: 0 Trouble remembering appointments: 0 Daily problems with thinking and/or memory: 0 Total AD8 score:: 0 Patient Instructions Medicare Wellness Assessment completed and reviewed, including information in risk screening questionnaire in EMR by ancillary staff. Below are the findings, recommendations, and Personal Plan of Care. The patient received a copy of their Personal Plan of Care including health maintenance topics thatare recommended to be completed and this can be noted in the after visit summary. The AVS is provided to the patient digitally through their MyChart account or with a paper copy if the patient doesn't have an active MyChart Account. A copy of today's progress note with recommendations below is alsoavailable electronically for patients with an active MyChart account per the Federal Cures Act. TheAVS also contains additional patient education if appropriate on topics common to wellness and their plan of care. AWV findings and Plan of Care: Good preventative health care is important in reducing morbidity and mortality. I recommend exercise regularly as tolerated focusing on strength and balance. I recommend a balanced diet focusing on fruits, veggies, and lean meats. I recommend avoiding rugs, runners or other loose trip hazards in the home as these increase fall risks. I recommend installing grab bars in the bathrooms close to toilets, in tubs and in showers as these are common areas for falls when transitioning from wet surfaces to dry surfaces, or visa versa. This is also an area of the home that is high risk for falls at night. I encourage having Advanced Directives. This is something the patient should have on file, as well as something that we should have on file in our records. If we don't have a copy of your current Advanced Directive, please bring a copy to your next visit. If you have a power of corporate attorney or surrogate, we should also have a copy on file. I encourage candid discussion with your family on your wishesin the event that you are incapacitated and unable to participate in direct medical decision making. Recommended yearly follow up and age appropriate preventative health recommendations and vaccinations including Flu, Pneumonia and Shingles. Health maintenance topics that are recommended to be closed at your earliest opportunity. You may notice that some of these were addressed in the office today. Health Maintenance Due Topic Date Due Wellness Exam Medicare Never done Hepatitis C Screening Never done DTaP/TDaP/Td (1 - Tdap) Never done Colon Cancer Screening Never done Zoster (1 of 2) Never done COVID-19 Vaccine (2023- season) 2024 In addition to recommendations to close care gaps noted above additional recommendations as part ofthe Personal Plan of Care are: Fall Risk Assessment Positive - Add grab bars in high fall risk locations (bathroom, tub/shower, toilet). Functional Status/Social Determinants of Health - Stable, no issues, re-assess 1 year. Depression Screening Negative - Recommend re-assess 1 year. Dementia Screening Negative - Recommend re-assess 1 year. Vaccinations updated today, see orders. Activity/Exercise - recommend continuing current OBJECTIVE: Vitals: 11/01/24 1203 BP: 128/76 Pulse: 68 Resp: 18 Temp: 98.2 ??F (36.8 ??C) TempSrc: Temporal SpO2: 99% Weight: 188 lb (85.3 kg) Height: 5' 10 (1.778 m) Physical Exam Vitals and nursing note reviewed. Constitutional: General: He is not in acute distress. Appearance: Normal appearance. He is well-developed. HENT: Head: Normocephalic. Right Ear: Tympanic membrane and external ear normal. Left Ear: Tympanic membrane and external ear normal. Nose: Nose normal. No congestion. Mouth/Throat: Mouth: Mucous membranes are moist. Pharynx: No oropharyngeal exudate or posterior oropharyngeal erythema. Eyes: Extraocular Movements: Extraocular movements intact. Conjunctiva/sclera: Conjunctivae normal. Pupils: Pupils are equal, round, and reactive to light. Neck: Thyroid: No thyromegaly. Cardiovascular: Rate and Rhythm: Normal rate and regular rhythm. Pulmonary: Effort: Pulmonary effort is normal. No respiratory distress. Breath sounds: Normal breath sounds. No wheezing, rhonchi or rales. Abdominal: General: There is no distension. Palpations: Abdomen is soft. Tenderness: There is no abdominal tenderness. There is no guarding or rebound. Musculoskeletal: General: Normal range of motion. Cervical back: Neck supple. Right lower leg: No edema. Left lower leg: No edema. Skin: Findings: No rash. Neurological: General: No focal deficit present. Mental Status: He is alert and oriented to person, place, and time. Cranial Nerves: No cranial nerve deficit. Coordination: Coordination normal. Psychiatric: Mood and Affect: Mood normal. Behavior: Behavior normal. ASSESSMENT/PLAN: Diagnoses and all orders for this visit: Welcome to Medicare preventive visit Encounter to establish care with new doctor Neurogenic bladder Overview: Has followed with various urologists in the past Has had thorough evaluation in the past per patient report Intermittent self cath Referral to the urology group to reestablish care Orders: - AMB REFERRAL TO UROLOGY Urinary retention Overview: Has followed with various urologists in the past Has had thorough evaluation in the past per patient report Intermittent self cath Referral to the urology group to reestablish care Orders: - AMB REFERRAL TO UROLOGY Elevated PSA --per patient report PSA 2.6 4 years ago. PSA 4.1 x 1 year ago + 3 months later PSA 3.6. --PSA 6.5 at present time 10/2024 --unfortunately tractoring a lot this summer, recent ejaculation, and not extra cautious with self catheterization prior to most recent PSA test --recheck PSA in 3 months --urology referral given urinary issues and elevated PSA - AMB REFERRAL TO UROLOGY - PROSTATE SPECIFIC ANTIGEN (TUMOR MARKER); Future; Expected date: 01/01/2025 Primary insomnia --trial of trazodone - traZODone (DESYREL) 50 mg Oral Tablet; Take 1-2 Tablets by mouth nightly as needed for Sleep. Dispense: 60 Tablet; Refill: 5 Pharyngeal dysphagia --trial of PPI --GI referral for potential EGD - omeprazole (PRILOSEC) 40 mg Oral Capsule, Delayed Release(E.C.); Take 1 Capsule by mouth daily. Dispense: 90 Capsule; Refill: 0 - AMB REFERRAL TO GASTROENTEROLOGY Colon cancer screening - AMB REFERRAL TO GASTROENTEROLOGY Need for pneumococcal vaccination - PNEUMOCOCCAL CONJUGATE VACCINE 20 VALENT IM Return in about 1 year (around 11/01/2025) for annual medicare. This visit constituted management of a single serious and/or complex condition for which we have developed an ongoing, longitudinal, regularly reviewed plan of care. We will continue regular long-term follow up for this condition. documented in this encounter Miscellaneous Notes * Patient Instructions - David Tilley MD - 11/01/2024 11:45 AM EDT Patient Education Yearly Physical for Adults About this topic Most people do not want to be sick. Having a checkup each year with your doctor is one way to help you stay healthy. You may need to see your doctor more or less often. How often you need to go to the doctor depends on your age. Your family and medical history also play a role in how often you needto go to the doctor. Going to see your doctor on a routine basis can help you find problems early or even before they start. This may make it easier to treat or cure your problem. General Your doctor will talk about many things during your checkup. Your doctor may ask about: Your medical and family history. All the drugs you are taking. Be sure to include all prescription, over the counter, and herbal supplements. Tell the doctor if you have any drug allergy. Bring a list of drugs you take with you. How you are feeling and if you are having any problems. Risky behaviors like smoking, drinking alcohol, using illegal drugs, not wearing seatbelts, having unprotected sex, etc. Your doctor will do a physical exam and may check your: Height and weight Blood pressure Reflexes Memory Vision Hearing Your doctor may order: Lab tests ECG to check your heart rhythm X-rays Tests or treatments based on your exam What lifestyle changes are needed? Your doctor may suggest you make changes to your lifestyle at this visit. The doctor may talk with you about being more active or lowering stress levels. Ask your doctor what you need to do. What drugs may be needed? Your doctor may order drugs or vaccines to protect you from illnesses. What changes to diet are needed? Talk to your doctor to see if any changes are needed to your diet. When do I need to call the doctor? Call your doctor if you need to learn about any test results. Together you can make a plan for morecare. Helpful tips Make a list of questions for your doctor before you go. This will help you remember to ask about any concerns. Write down any answers from your doctor so you can look over them after your visit. Tell your doctor about any changes in your body or health since your last visit. Ask your doctor about any screening tests you need. Where can I learn more? [employer] http://familydoctor.org/familydoctor/en/prevention-wellness/staying-healthy/heal thy-living/nxhwqgkqvp-mwmnfwin-xby-healthy-living.printerview.html Centers for Disease Control http://www.cdc.gov/family/checkup/ Last Reviewed Date 2018-06-06 Consumer Information Use and Disclaimer This information is not specific medical advice and does not replace information you receive from your health care provider. This is only a brief summary of general information. It does NOT include all information about conditions, illnesses, injuries, tests, procedures, treatments, therapies, discharge instructions or life-style choices that may apply to you. You must talk with your health care provider for complete information about your health and treatment options. This information should not be used to decide whether or not to accept your health care provider???s advice, instructions or recommendations. Only your health care provider has the knowledge and training to provide advice that is right for you. Copyright Copyright ?? 2020 [employer] and its affiliates and/or licensors. All rights reserved. documented in this encounter Plan of Treatment Upcoming Encounters Date Type Department Care Team (Late st Contact Info) Description 01/24/2025 12:00 PM EST Appointment [facility] [address] [place] [address] Eladia Goff MD [address] [place] [address] Scheduled Orders Name Type Priority Associated Diagnoses Orde r Schedule PROSTATE SPECIFIC ANTIGEN (TUMOR MARKER) Lab Routine Elevated PSA Expected: 01/01/2025 (Approximate), Expires: 11/01/2025 Scheduled Referrals Name Type Priority Associated Diagnoses Order Schedule AMB REFERRAL TO UROLOGY Outpatient Referral Routine Neurogenic bladder Urinary retention Elevated PSA Ordered: 11/01/2024 AMB REFERRAL TO GASTROENTEROLOGY Outpatient Referral Routine Colon cancer screening Pharyngeal dysphagia Ordered: 11/01/2024 documented as of this encounter Goals Goal Patient Goal Type Associated Problems Recent Progress Patient-Stated? Author Maintain a healthy diet, exercise regularly and maintain an ideal body weight General No Ivonne Maria, EMILIAA documented as of this encounter Visit Diagnoses Diagnosis Welcome to Medicare preventive visit- Primary Encounter to establish care with new doctor Neurogenic bladder Neurogenic bladder, NOS Urinary retention Retention of urine, unspecified Elevated PSA Elevated prostate specific antigen (PSA) Primary insomnia Persistent disorder of initiating or maintaining sleep Pharyngeal dysphagia Dysphagia, pharyngeal phase Colon cancer screening Special screening for malignant neoplasms, colon Need for pneumococcal vaccination Need for prophylactic vaccination against streptococcus pneumoniae (pneumococcus) documented in this encounter Discontinued Medications Medication Sig Discontinue Reason Start Date End Da te methylPREDNISolone (MEDROL DOSPACK) 4 mg Oral Tablets, Dose PackIndications:Radic ulopathy of cervical region follow package directions DELETE-Therapy completed 04/18/2024 11/01/2024 oxyCODONE-acetaminoph en (PERCOCET) 5-325 mg Oral Tablet Take 1-2 Tablets by mouth every 4 hours as needed for Acute Pain (R52). DELETE-Therapy completed 12/09/2020 11/01/2024 multivitamin with folic acid (THERAGRAN) 400 mcg Oral Tablet Take 1 Tablet by mouth daily. MVI DELETE-Therapy completed 11/01/2024 gabapentin (NEURONTIN) 300 mg Oral Capsule Take by mouth 3 times daily. DELETE-Therapy completed 11/01/2024 cholecalciferol, vitamin D3, 25 mcg (1,000 unit) Oral Tablet Take 1 Tablet by mouth daily. DELETE-Therapy completed 11/01/2024 diazePAM (VALIUM) 5 mg Oral TabletIndications:DDD (degenerative disc disease), cervical Take 1 tablet by mouth 2 hours prior to prior to procedure, take additional 1 tablet 1 hour prior to procedure, if needed DELETE-Therapy completed 05/05/2024 11/01/2024 fish oil omega 3-dha-epa 300-1,000 mg Oral Capsule, Delayed Release(E.C.) Take 2 g by mouth daily. DELETE-Therapy completed 11/01/2024 pseudoephedrine (SUDAFED) 60 mg Oral Tablet Take 60 mg by mouth every 6 hours as needed for Congestion. DELETE-Therapy completed 11/01/2024 documented as of this encounter Historical Medications * This list may reflect changes made after this encounter. tadalafiL (CIALIS) 5 mg Oral Tablet Take 5 mg by mouth daily. pseudoephedrine (SUDAFED) 60 mg Oral Tablet Take 60 mg by mouth every 6 hours as needed for Congestion. 11/01/2024 added in this encounter Orders Immunization/Injection Count Last Ordered Date First Ordered Date PNEUMOCOCCAL CONJUGATE VACCI NE 20 VALENT IM 1 11/01/2024 documented in this encounter Additional Health Concerns Assessment Noted Time A fall risk assessment has been complete d for the patient 11/01/2024 12:03 PM EDT documented as of this encounter Care Teams Ultrasonic Cleaner Relationship Specialty Start Date End Date Eren Cardenas [address] [place] [address] [address] [place] [address] PCP - General Internal Medicine-Adolescent Medicine 07/19/12 11/12/24 documented as of this encounter
--- OUTSIDE RECORDS SUMMARY | 2024-11-01 19:00 | XMS_ITS | Continuity of Care Document ---
Author Organization [facility] Address [address] [place] [address] Phone Care Team Providers Care Titrator Name Role Phone Ema Zabala PT Unavailable Unavailab le Medications Medication Instructions Dosage Effective Dates (start - stop) Status Comments pregabalin 75 mg capsule take 1 capsule by oral route 2 times every day 75 MG - Active Neurontin 300 mg capsule take 1 capsule by oral route 3 times every day 300 MG - Active Procedures Procedure Date Neuromuscular re-edu Physical Tx exercise Neuromuscular re-edu Manual therapy 1+ regions Neuromuscular re-edu Manual therapy 1+ regions Manual therapy 1+ regions Neuromuscular re-edu Neuromuscular re-edu Manual therapy 1+ regions Neuromuscular re-edu Physical Tx exercise Physical Tx exercise Mechanical traction therapy Physical Tx exercise Mechanical traction therapy Physical Tx exercise Mechanical traction therapy Neuromuscular re-edu Physical Tx exercise Mechanical traction therapy Office/outpatient visit,est, mod 2024 Neuromuscular re-edu Physical Tx exercise Mechanical traction therapy Neuromuscular re-edu Physical Tx exercise Mechanical traction therapy Neuromuscular re-edu Physical Tx exercise Mechanical traction therapy PT EVAL LOW COMPLEX 20 MIN Physical Tx exercise Therapeutic activities (one on one) [place] [facility] [place]ray exam of neck spine, 4+ views Apr- X-ray exam of shoulder, complete 2024 Advance Directives Directive Yes / No Effective Date File Name No Information Encounters Encounter Description Practice Location Reason(s) For Visit Diagnoses Date Provider Providers Copied on Encounter [facility] [address], [facility], tel:[phone] No Information 5 Vj Boo. [address] [place], [place], [id number], . tel:[phone] [facility], [address] [place] [address], [address], [place] tel:[phone] [facility] [place] Radiculopathy, cervical region 5 Vj Boo. [address] [place], [place], [id number], . tel:[phone] Referring Provider: El Menjivar, [address] [place] [address], [address] . tel:[phone] [facility] [address], [address], [place] tel:[phone] [place] Radiculopathy, cervical regionOther spondylosis, cervical region 5 Nicole Gallegos. [address] [place] [address], [id number], [place]. tel:[phone] Referring Provider: El Menjivar, [address] [place] [address], [address] . tel:[phone] [facility], [address] [place], [address], [place] tel:[phone] [facility] [place] Radiculopathy, cervical region 5 Jim Don. [address] [place], [place], [id number], [place]. tel:[phone] Referring Provider: El Menjivar, [address] [facility], [place], [address] . tel:[phone] [facility], [address] [place], [address], [place] tel:[phone] [facility] [place] Radiculopathy, cervical region 5 Jim Don. [address] [place], [id number], [place]. tel:[phone] Referring Provider: El Menjivar, [address] [place], [address] . tel:[phone] [facility], [address] [place], [address], [place] tel:[phone] [facility] [place] Radiculopathy, cervical region 5 Vj Boo. [address] [place], [place], [id number], [place]. tel:[phone] Referring Provider: El Menjivar, [address] [place], [address] . tel:[phone] [facility], [address] [place], [address], [place] tel:[phone] [facility] [place] Radiculopathy, cervical region 5 Jim Don. [address] [place], [place], [id number], [place]. tel:[phone] Referring Provider: El Menjivar, [address] [place], [address] . tel:[phone] [facility], [address] [place], [address], [place] tel:[phone] 700 [place] Other spondylosis, cervical regionRadiculo chang, cervical regionVertigo of central origin 5 Nicole Gallegos. [address] [place], [place], [id number], [place]. tel:[phone] Referring Provider: El Menjivar, [address] [facility], [place], [address] . tel:[phone] [facility], [address] [place], [address], [place] tel:[phone] [facility] [place] Radiculopathy, cervical region 5 Vj Boo. [address] [place], [place], [id number], [place]. tel:[phone] Referring Provider: El Menjivar, [address] [place], [address] . tel:[phone] [facility], [address] [place], [address], [place] tel:[phone] 700 [facility] [place] Radiculopathy, cervical region 5 Vj Boo. [address] [place], [place], [id number], [place]. tel:[phone] Referring Provider: El Menjivar, [address] [place], [address] . tel:[phone] [facility], [facility] [place], [address], [place] tel:[phone] [facility] [place] Radiculopathy, cervical region 5 Jim Don. [address] [place], [place], [id number], [place]. tel:[phone] Referring Provider: El Menjivar, [address] [place], [address] . tel:[phone] [facility], [address] [place], [address], [place] tel:[phone] [facility] [place] Radiculopathy, cervical region 5 Jim Don. [address] [place], [place], [id number], [place]. tel:[phone] Referring Provider: El Menjivar, [address] [facility], [place], [address] . tel:[phone] [facility], [address] [place], [address], [place] tel:[phone] [facility] [place] Radiculopathy, cervical region 5 Vj Boo. [address] [place], [id number], [place]. tel:[phone] Referring Provider: El Menjivar, [address] [facility], [place], [address] . tel:[phone] Office/outpa tient visit,est, mod [facility], [address] [place], [address], [place] tel:[phone] 700 [facility] Other spondylosis, cervical regionAdhesive capsulitis of left shoulder May- 5 Nicole Gallegos. [address] [place], [place], [id number], [place]. tel:[phone] Referring Provider: El Menjivar, [address] [facility], [place], [address] . tel:[phone] [facility], [address] [place], [address], [place] tel:[phone] [facility] [place] Radiculopathy, cervical region May- 5 Vj Boo. [address] [place], [id number], [place]. tel:[phone] Referring Provider: El Menjivar, [address] [place], [address] . tel:[phone] [facility], [address] [place], [address], [place] tel:[phone] [facility] Radiculopathy, cervical region May- 5 Vjnancy Campaine. [address] [place], [id number], [place]. tel:[phone] Referring Provider: El Menjivar, [address] [facility], [place], [address] . tel:[phone] [facility], [address] [place], [address], [place] tel:[phone] [facility] Garcia Radiculopathy, cervical region May-0 5 Vj Ema. [address] [place], [id number], [place]. tel:[phone] Referring Provider: El Menjivar, [address] [facility], [place], [address] . tel:[phone] [facility], [address] [place], [address], [place] tel:[phone] [facility] [place] Radiculopathy, cervical region May-0 5 Peter Funk. [address] [employer] [address], [id number], [place]. Referring Provider: El Menjivar, [address] [facility], [place], [address] . tel:[phone] Office/outpa tient visit,[facility], [address] [place], [address], [place] tel:[phone] [place] Other spondylosis with radiculopathy, cervical regionStrain of muscle(s) and tendon(s) of the rotator cuff of left shoulder, initial encounterOther specified joint disorders, left shoulder Apr-2 5 Nicole Gallegos. [address] [place], [place], [id number], [place]. tel:[phone] Referring Provider: El Menjivar, [address] [facility], [place], [address] . tel:[phone] Family History Family Member Type Diagnosis Age At Onset No Information Payers Payer name Insurance type Covered constitution party ID Authoriza tion(s) [place] [id number] [place] [employer] [id number] Social History Type Description Quantity Date Captured Comments Sex Male Smoking Status No Information Sexual Orientation Straight or heterosexual Apr Gender Identity Male Chief Complaint And Reason For Visit No Information Reason For Referral Reason For Referral No Information History Of Present Illness Encounter Date Complaint History Of Prese nt Illness No Information Functional Status Date Functional Assessmen t No Information Instructions Date Instruction Additional Infor mation No Information Assessments Type Assessment Date No Information Patient Care Teams Name Effective Dates (start - stop) Status Members No Information
--- OUTSIDE RECORDS SUMMARY | 2024-11-29 11:30 | XMS_ITS | Encounter Summary ---
Author Organization [place] [address] Care Team Providers Care Pre Parole Counseling Aide Name Role Phone David Tilley MD Primary Care Provider [phone] Reason for Referral * GI Procedure (Routine) - Pending Review Specialty Diagnoses / Procedures Referred By Contac t Referred To Contact Diagnoses Esophageal dysphagia Chronic GERD Screening for colon cancer Rectal bleeding Family history of colon cancer in mother Bleeding internal hemorrhoids Lactose intolerance Procedures AMB COLON/EGD W ANESTH COMM ORDER Tereza Higuera APRN [address] [place] [address] Phone: tel: fax: Referral ID Status Reason Start Date Expiration Date V isits Requested Visits Authorized [id number] Pending Review 11/29/2024 11/29/2025 1 1 Reason for Visit * Reason Comments Dysphagia Colonoscopy Rectal Bleeding * Consultation (Routine) - Authorization Not Needed Specialty Diagnoses / Procedures Referred By Contact Referred To Contact Internal Medicine-Gastroenterology / Gastroenterology Diagnoses Colon cancer screening Pharyngeal dysphagia Procedures UT OFFICE/OUTPATIENT NEW MODERATE MDM 45 MINUTES David Tilley MD [address] [place] [address] Phone: tel: fax: [facility] [address] [facility] [address] [place] [address] Phone: tel:[phone] fax:[phone] Referral ID Status Reason Start Date Expiration Date Visits Requested Visits Authorized [id number] Authorization Not Needed Specialty Services Required 05/01/2026 99 99 Encounter Details Date Type Department Care Team (Late st Contact Info) Description 11/29/2024 12:30 PM EDT Office Visit [facility] [address] [place] [address] [employer], ADMIN SECRETARY [address] [facility] [place], [place] [id number] Esophageal dysphagia (Primary Dx); Chronic GERD; Screening for colon cancer; Rectal bleeding; Family history of colon cancer in mother; Bleeding internal hemorrhoids; Lactose intolerance Social History Tobacco Use Types Packs/Day Years [...] Sign Reading Time Taken Comments Blood Pressure 118/70 11/29/2024 12:32 PM EDT Pulse - - Temperature - - Respiratory Rate - - Oxygen Saturation - - Inhaled Oxygen Concentration - - Weight 84.4 kg (186 lb) 11/29/2024 12:32 PM EDT Height 177.8 cm (5' 10 ) 11/29/2024 12:32 PM EDT Body Mass Index 26.69 11/29/2024 12:32 PM EDT documented in this encounter Functional Status * Is the person deaf or does [...] Assessment Author No 11/01/2024 12:00 PM EDT Elsi Mariaawais Griffith PHILLIP * Does this person have difficulty dressing or bathing? Answer Date of Assessment Author No 11/01/2024 12:00 PM EDT Elsi Mariaana PHILLIP Griffith * Because of a physical, mental or emotional condition, does this person have difficulty doing errands alone such as visiting a doctor's office or shopping? Answer Date of Assessment Author No 11/01/2024 12:00 PM EDT Elsi Mariaana Gladis PHILLIP documented as of this encounter Mental Status * Because of a physical, mental or emotional condition, does this person have serious difficulty concentrating, remembering or making decisions? Answer Entry Date Author No 11/01/2024 12:00 PM EDT Elsi Mariaawais Griffith PHILLIP documented in this encounter Progress Notes * Tereza Higuera, RADHA - 11/29/2024 12:30 PM EDT ASSESSMENT/PLAN: Andre was seen today for dysphagia, colonoscopy and rectal bleeding. Diagnoses and all orders for this visit: Esophageal dysphagia - AMB COLON/EGD W ANESTH COMM ORDER Chronic GERD - AMB COLON/EGD W ANESTH COMM ORDER Screening for colon cancer - AMB COLON/EGD W ANESTH COMM ORDER Rectal bleeding - AMB COLON/EGD W ANESTH COMM ORDER Family history of colon cancer in mother - AMB COLON/EGD W ANESTH COMM ORDER Bleeding internal hemorrhoids - AMB COLON/EGD W ANESTH COMM ORDER Lactose intolerance - AMB COLON/EGD W ANESTH COMM ORDER Assessment & Plan Esophageal dysphagia 1. Lower esophageal dysphagia with solids of 3-4 months duration which will typically pass with tincture of time but is associated with some pain. He reports he has not had any issues with dysphagia since starting omeprazole 40 mg daily about 4 weeks ago. - Recommend he cut his food in small bites, chew his food well, take drinks between bites and remain upright for 30 minutes following meals - Recommend EGD with MAC for potential dilation -Continue Prilosec 40 mg daily Orders: AMB COLON/EGD W ANESTH COMM ORDER Chronic GERD 2. Chronic GERD of 4-5 years duration -Recommend GERD diet - He has had improvement since starting omeprazole 40 mg daily about 4 weeks ago. Continue PPI therapy - Recommend EGD to evaluate for reflux esophagitis, EOE, neoplasia, Olson's esophagus Orders: AMB COLON/EGD W ANESTH COMM ORDER Screening for colon cancer 3. Screening for colon cancer - Discussed colon cancer screening including Cologuard versus colonoscopy. After discussion with patient, he wishes to pursue colonoscopy. Orders: AMB COLON/EGD W ANESTH COMM ORDER Rectal bleeding 4. Rectal bleeding with known history of internal hemorrhoids with some bleeding on the stool itself and on the toilet tissue. Suspect this is hemorrhoidal in nature but need to rule out other etiology Orders: AMB COLON/EGD W ANESTH COMM ORDER Family history of colon cancer in mother 5. Family history of colon cancer in his mother at age 80 Orders: AMB COLON/EGD W ANESTH COMM ORDER Bleeding internal hemorrhoids 6. Intermittent bleeding internal hemorrhoids Orders: AMB COLON/EGD W ANESTH COMM ORDER Lactose intolerance 7. Lactose intolerance - Avoids lactose and whey Orders: AMB COLON/EGD W ANESTH COMM ORDER All the above discussed and all questions answered. Return if symptoms worsen or fail to improve. 1. The patient indicates understanding of these issues and agrees with the plan. 2. I reviewed the patient's medical information and medical history. 3. I have reviewed the past medical, family, and social history sections including the medications and allergies listed in the above medical record. 4. Recommend yearly physical exam with PCP. This note was generated using Voice Recognition technology. It has been reviewed by the undersigned, however, may still contain unintended errors. Electronically signed by: Tereza Higuera APRN, 11/29/2024 1:55 PM CC: David Tilley MD GASTROENTEROLOGY NEW PATIENT OFFICE CONSULTATION: CHIEF COMPLAINT Chief Complaint Patient presents with Dysphagia Colonoscopy Rectal Bleeding SUBJECTIVE Andre Dowling is a 63 y.o. male for whom a consultation is requested by David Haque MD for dysphagia, heartburn, colonoscopy and rectal bleeding Pt with hx of neurogenic bladder-self caths, insomnia, biceps tendon repair, cystoscopy, laparoscopic cholecystectomy, nasal surgery, arm surgery, was referred to the office for complaints of dysphagia. He was recently started on PPI therapy with improvement in symptoms. He is currently being evaluated for an elevated PSA. He reports he had a Cologuard done at an outside facility approximately 4 years ago ROS Constitutional: Negative for fever, chills and unexpected weight change. HEENT: Negative for ear pain, visual disturbance & hearing disturbance/loss. Respiratory: Negative for cough, chest tightness and shortness of breath. Cardiovascular: Negative for chest pain and leg swelling. Musculoskeletal: Negative for joint swelling and arthralgias. Skin: Negative for pallor. Neurological: Negative for dizziness, seizures and headaches. Hematological: Negative for bruising/bleeding easily. All other review of systems negative, except for those noted. MEDICATIONS Current Medications[1] ALLERGIES Allergies[2] Past Medical History Past Medical History[3] Family History: Mother-colon cancer at age 80 Family History[4] Social History: Non-smoker, nondrinker Social History Socioeconomic History Marital status: Spouse name: Not on file Number of children: Not on file Years of education: Not on file Highest education level: Not on file Occupational History Not on file Tobacco Use Smoking status: Never Smokeless tobacco: Never Vaping Use Vaping status: Never Used Substance and Sexual Activity Alcohol use: No Drug use: No Sexual activity: Not on file Other Topics Concern Not on file Social History Narrative Not on file Social Drivers of Health Financial Resource Strain: Not on file Food Insecurity: Not on file Transportation Needs: Not on file Physical Activity: Not on file Stress: Not on file Social Connections: Not on file Intimate Partner Violence: Not on file Housing Stability: Not on file PHYSICAL EXAM: BP 118/70 Ht 5' 10 (1.778 m) Wt 186 lb (84.4 kg) BMI 26.69 kg/m?? Nursing note and vitals reviewed. Constitutional: the patient is oriented well-nourished male no apparent distress. HEENT: Normocephalic and atraumatic. Pupils are equal, round, and reactive to light. Neck supple. Cardiovascular: Normal rate, regular rhythm and normal heart sounds. Pulmonary/Chest: Breath sounds normal. Abdominal: Positive bowel sounds. Soft, nontender, nondistended. Rectal: Deferred to colonoscopy Musculoskeletal: the patient exhibits no edema. Neurological: the patient is alert and oriented. Skin: Skin is warm and dry. Psychiatric: the patient has a normal mood and affect. RESULTS No results found for: WBC , HGB , HCT , MCV , PLT No results found for: ALT , AST , ALKPHOS No results found for: AMYLASE , LIPASE No results found for: NA , K , CL , CO2 , BUN PROBLEM LIST Problem List[5] FINAL DIAGNOSIS 1. Esophageal dysphagia AMB COLON/EGD W ANESTH COMM ORDER 2. Chronic GERD AMB COLON/EGD W ANESTH COMM ORDER 3. Screening for colon cancer AMB COLON/EGD W ANESTH COMM ORDER 4. Rectal bleeding AMB COLON/EGD W ANESTH COMM ORDER 5. Family history of colon cancer in mother AMB COLON/EGD W ANESTH COMM ORDER 6. Bleeding internal hemorrhoids AMB COLON/EGD W ANESTH COMM ORDER 7. Lactose intolerance AMB COLON/EGD W ANESTH COMM ORDER VISIT ORDERS Orders Placed This Encounter Procedures Colonoscopy/EGD W Anesthesia Comm Order Scheduling Instructions: Please schedule Dec-Jan per pt at [place] [place] [1] Current Outpatient Medications Medication Sig Dispense Refill aspirin 81 mg Oral Tablet, Chewable Take 81 mg by mouth daily as needed for Pain. ibuprofen (ADVIL;MOTRIN) 100 mg/5 mL Oral Suspension Take 10 mg/kg by mouth every 8 hours as neededfor Fever. lactobacillus rhamnosus, GG, (CULTURELLE) 10 billion cell Oral Capsule Take 1 Capsule by mouth daily. omeprazole (PRILOSEC) 40 mg Oral Capsule, Delayed Release(E.C.) Take 1 Capsule by mouth daily. 90 Capsule 0 pregabalin (LYRICA) 75 mg Oral Capsule Take 75 mg by mouth 2 times daily. (Patient taking differently: Take 75 mg by mouth daily.) tadalafiL (CIALIS) 5 mg Oral Tablet Take 5 mg by mouth daily. sodium,potassium,mag sulfates 17.5-3.13-1.6 gram Oral Recon Soln Take 6 oz by mouth 2 times daily. take as directed by doctor's office 354 mL 0 traZODone (DESYREL) 50 mg Oral Tablet Take 1-2 Tablets by mouth nightly as needed for Sleep. (Patient not taking: Reported on 11/29/2024) 60 Tablet 5 No current facility-administered medications for this visit. [2] Allergies Allergen Reactions Lactose Intolerance (Lactase) Diarrhea Tylenol [Acetaminophen] Other (See Comments) CAUSES MOUTH SORES Whey Diarrhea Dietary [3] Past Medical History: Diagnosis Date Arm injury 06/27/2012 was kicked by a cow and knocked into a post and injured right arm Arthritis Bladder problem URINARY RETENTION -SELF CATH 3-4X/DAY DUE TO WEAK BLEDDER Chronic calculous cholecystitis 12/25/2014 GERD (gastroesophageal reflux disease) Heartburn Lactose intolerance Low back pain off and on Motion sickness Postoperative nausea and vomiting severe postop n/v; did very well with gallbladder n/v pre-op treatment Rupture of distal biceps tendon, left, initial encounter 12/05/2020 Added automatically from request for surgery [id number] [4] Family History Problem Relation Age of Onset Colon Cancer Mother Diabetes Mother Cancer Mother Anesth Problems Neg Hx [5] Patient Active Problem List Diagnosis Urinary retention Pharyngeal dysphagia Neurogenic bladder Elevated PSA Primary insomnia documented in this encounter Plan of Treatment Upcoming Encounters Date Type Department Care Team (Late st Contact Info) Description 01/24/2025 12:00 PM EST Appointment [facility] [address] [place] [place] [address] Eladia Goff MD [address] [place] [address] documented as of this encounter Goals Goal Patient Goal Type Associated Problems Recent Progress Patient-Stated? Author Maintain a healthy diet, exercise regularly and maintain an ideal body weight General No Ivonne Maria, RMA documented as of this encounter Visit Diagnoses Diagnosis Esophageal dysphagia- Primary Dysphagia, pharyngoesophageal phase Chronic GERD Screening for colon cancer Special screening for malignant neoplasms, colon Rectal bleeding Hemorrhage of rectum and anus Family history of colon cancer in mother Bleeding internal hemorrhoids Internal hemorrhoids with other complication Lactose intolerance Intestinal disaccharidase deficiencies and disaccharide malabsorption documented in this encounter Orders Nursing Count Last Ordered Date First Orde red Date AMB COLON/EGD W ANESTH COMM ORDER 1 025 documented in this encounter Additional Health Concerns Assessment Noted Time A fall risk assessment has been complete d for the patient 11/01/2024 12:03 PM EDT documented as of this encounter Care Teams Pre Parole Counseling Aide Relationship Specialty Start Date End Date David Tilley MD [address] [place] [address] PCP - General Family Medicine 11/13/24 documented as of this encounter
--- NOTE | 2024-12-27 13:08 | US_ITS ---
FINAL REPORT CLINICAL HISTORY: RETENTION OF URINE FINDINGS: ULTRASOUND BLADDER WITH POST VOID RESIDUAL Bladder volumes were estimated based on 3 dimensional measurements, pre- and postvoid. Prevoid bladder volume: 615.5 mls Postvoid bladder volume: 8.2 mls IMPRESSION: Estimated bladder volumes as above with no appreciable postvoid residual . Reviewed, Interpreted and Dictated by Ahmet Rowe MD Transcribed by Lisbeth Patterson Authenticated and [facility]
--- OUTSIDE RECORDS SUMMARY | 2024-12-27 13:26 | XMS_ITS | Encounter Summary ---
Author Organization [place] [address] Care Team Providers Care Packing Machine Can Feeder Name Role Phone David Tilley MD Primary Care Provider [phone] Reason for Visit * Reason Onset Date Comments Medication Management 11/29/2024 suprep Encounter Details Date Type Department Care Team (Late st Contact Info) Description 11/29/2024 Telephone [facility] [address] [facility] [address], 3RD [place] [address] Eladia Goff MD [address] [place] [address] Medication Management (suprep ) Social History Tobacco Use Types Packs/Day Years [...] on file documented as of this encounter Functional Status * Is the person deaf or does he/she have serious difficulty hearing? Answer Date of Assessment Author No 11/01/2024 12:00 PM EDT Ivonne Maria RMA * Is the person blind or does he/she have serious difficulty seeing even when wearing glasses? Answer Date of Assessment Author No 11/01/2024 12:00 PM EDT Appelman , Ivonne M, RMA * Does this person have serious [...] Refills Last Filled Start Date End Date sodium,potassium,m ag sulfates 17.5-3.13-1.6 gram Oral Recon Soln Take 6 oz by mouth 2 times daily. take as directed by doctor's office 354 mL 11/29/2024 documented in this encounter Miscellaneous Notes * Telephone Encounter - Robi Silveira MA - 11/29/2024 1:52 PM EDT prep sent to pharm * Telephone Encounter - Mehnaz Carlisle NA - 11/29/2024 1:37 PM EDT please send suprep to dyana sr documented in this encounter Plan of Treatment Upcoming Encounters Date Type Department Care Team (Late st Contact Info) Description 01/24/2025 12:00 PM EST Appointment [facility] [address] [place] [address] Eladia Goff MD [address] [facility] [place] [address] documented as of this encounter Goals Goal Patient Goal Type Associated Problems Recent Progress Patient-Stated? Author Maintain a healthy diet, exercise regularly and maintain an ideal body weight General No Ivonne Maria, RMA documented as of this encounter Visit Diagnoses Not on filedocumented in this encounter Additional Health Concerns Assessment Noted Time A fall risk assessment has been complete d for the patient 11/01/2024 12:03 PM EDT documented as of this encounter Care Teams Packing Machine Can Feeder Relationship Specialty Start Date End Date David Tilley MD [address] [place] [address] PCP - General Family Medicine 11/13/24 documented as of this encounter
--- OUTSIDE RECORDS SUMMARY | 2024-12-27 13:26 | XMS_ITS | Encounter Summary ---
Author Organization [place] [address] Care Team Providers Care Coil Spring Assembler Name Role Phone David Tilley MD Primary Care Provider [phone] Reason for Visit * Reason Onset Date Comments Medication Management 11/13/2024 traZODone Other 11/13/2024 Na Encounter Details Date Type Department Care Team (Late st Contact Info) Description 11/13/2024 Telephone [facility] [address] [place] [address] David Tilley MD [address] [place] [address] Medication Management (traZODone ); Other (Na) Social History Tobacco Use Types Packs/Day Years [...] Author No 11/01/2024 12:00 PM EDT Ivonne Maria, RMA * Is the person blind or [...] Ivonne Maria RMA documented in this encounter Miscellaneous Notes * Telephone Encounter - Ivonne Maria RMA - 11/14/2024 8:39 AM EDT Pt notified * Telephone Encounter - David Tilley MD - 11/13/2024 9:11 PM EDT Insomnia can be difficult to treat and unfortunately there are not a significant amount of treatment options. I would recommend giving it a longer trial and trying to take it slightly earlier in the night. * Telephone Encounter - Cally Patterson MA - 11/13/2024 1:46 PM EDT meds sent in 11/01/24 PCP was not changed during OV as new pt, I didn't catch it. Changed as of now pt doesn't sleep with it just makes him groggy and feels very off. asking for a change in medication tried one, them bumped it up to two and felt worse. * Telephone Encounter - Vanda Vargas - 11/13/2024 1:23 PM EDT Select the most appropriate reason for this telephone message: Other Who is calling (name & relationship to patient if not the patient): N/A What is needed OR why are they calling: PT was just in for an appt with Dr. Tilley on 11/01/24- Please advise- Per pts pt sees Dr. Tilley now. When is this needed by: N/A Where does this information need to go: Dr. Tilley Return Method of Communication: Phone Call Additional information:N/A * Telephone Encounter - Cally Patterson MA - 11/13/2024 1:18 PM EDT not our pt * Telephone Encounter - Vanda Vargas - 11/13/2024 1:14 PM EDT Select the most appropriate reason for this telephone message: Medication Management/Problem Who is calling? Other Leann What medication(s) do you have concerns about: Disp Refills Start End traZODone (DESYREL) 50 mg Oral Tablet 60 Tablet 5 11/01/2024 -- Sig - Route: Take 1-2 Tablets by mouth nightly as needed for Sleep. - Oral Sent to pharmacy as: traZODone 50 mg tablet (DESYREL) E-Prescribing Status: Receipt confirmed by pharmacy (11/01/2024 12:42 PM EDT) Prescribing provider: Dr. Tilley What are your concerns/request: Pt got it filled on 11/01/24- stated he tried 1 and 2 pills- hewas not sleepy at night, but was grogy and nauseated in the morning. Desired outcome: Change in medication Last appointment date: 11/01/24 Pharmacy: [id number] [address] [place] [id number] [address] [place] [place] [phone] Return Method of Communication: Phone Call Additional Information: N/A documented in this encounter Plan of Treatment Upcoming Encounters Date Type Department Care Team (Late st Contact Info) Description 01/24/2025 12:00 PM EST Appointment [facility] [address] [place], [place] [id number] Eladia Goff MD [address] [place] [address] documented as of this encounter Goals Goal Patient Goal Type Associated Problems Recent Progress Patient-Stated? Author Maintain a healthy diet, exercise regularly and maintain an ideal body weight General No Ivonne Maria, RMA documented as of this encounter Visit Diagnoses Diagnosis Primary insomnia Persistent disorder of initiating or maintaining sleep documented in this encounter Additional Health Concerns Assessment Noted Time A fall risk assessment has been complete d for the patient 11/01/2024 12:03 PM EDT documented as of this encounter Care Teams Coil Spring Assembler Relationship Specialty Start Date End Date David Tilley MD [address] [place] [address] PCP - General Family Medicine 11/13/24 documented as of this encounter
--- OUTSIDE RECORDS SUMMARY | 2024-12-27 13:27 | XMS_ITS | Clinical Summary ---
Author Organization [facility] Address [facility] [place] [address] Phone Care Team Providers Care Switchboard Inspector Name Role Phone David Tilley MD Primary Care Provider Allergies Active Allergy Reactions Criticality Noted Date Comments Lactose Intolerance (Lactase) Diarrhea 12/20/2014 Acetaminophen Other (See Comments) 05/19/2024 CAUSES MOUTH SORES Whey Diarrhea 10/29/2020 Dietary Medications aspirin 81 mg Oral Tablet, Chewable Take 81 mg by mouth daily as needed for Pain. Active ibuprofen (ADVIL;MOTRIN) 100 mg/5 mL Oral Suspension Take 10 mg/kg by mouth every 8 hours as needed for Fever. Active lactobacillus rhamnosus, GG, (CULTURELLE) 10 billion cell Oral Capsule Take 1 Capsule by mouth daily. Active pregabalin (LYRICA) 75 mg Oral Capsule Take 75 mg by mouth 2 times daily. Active tadalafiL (CIALIS) 5 mg Oral Tablet Take 5 mg by mouth daily. Active traZODone (DESYREL) 50 mg Oral TabletIndicatio ns:Primary insomnia Take 1-2 Tablets by mouth nightly as needed for Sleep. 60 Tablet 5 Active Additional Information Patient not taking.Reported on 11/29/2024 omeprazole (PRILOSEC) 40 mg Oral Capsule, Delayed Release(E.C.)In dications:Phary ngeal dysphagia Take 1 Capsule by mouth daily. 90 Capsule Active sodium,potassiu m,mag sulfates 17.5-3.13-1.6 gram Oral Recon Soln Take 6 oz by mouth 2 times daily. take as directed by doctor's office 354 mL Active Active Problems Problem Noted Date Diagnosed Date Pharyngeal dysphagia 11/01/2024 Neurogenic bladder 11/01/2024 Overview (11/01/2024): Has followed with various urologists in the past Has had thorough evaluation in the past per patient report Intermittent self cath Referral to the urology group to reestablish care Elevated PSA 11/01/2024 Primary insomnia 11/01/2024 Urinary retention 10/25/2020 Overview (11/01/2024): Has followed with various urologists in the past Has had thorough evaluation in the past per patient report Intermittent self cath Referral to the urology group to reestablish care Resolved Problems Problem Noted Date Diagnosed Date Resolved Date Rupture of distal biceps ten don, left, initial encounter 12/05/2020 11/01/2024 Overview (12/05/2020): Added automatically from request for surgery [id number] Chronic calculous cholecystitis 12/25/2014 11/01/2024 Encounters Date Type Department Care Team Description 11/29/2024 12:30 PM EDT Office Visit [facility] [address], [address] [place] [address] Tereza Higuera APRN Esophageal dysphagia (Primary Dx); Chronic GERD; Screening for colon cancer; Rectal bleeding; Family history of colon cancer in mother; Bleeding internal hemorrhoids; Lactose intolerance 11/29/2024 Telephone [facility] [address] [facility] [address], [address] [place] [address] Eladia Goff MD Medication Management (suprep ) 11/13/2024 Telephone [facility] [address] [place] [address] David Tilley MD Medication Management (traZODone ); Other (Na) 11/01/2024 11:45 AM EDT Office Visit [facility] [address] [place] [address] David Tilley MD Welcome to Medicare preventive visit (Primary Dx); Encounter to establish care with new doctor; Neurogenic bladder; Urinary retention; Elevated PSA; Primary insomnia; Pharyngeal dysphagia; Colon cancer screening; Need for pneumococcal vaccination 10/26/2024 Telephone [facility] [address] [place] [address] David Tilley MD Lab Orders 10/25/2024 Orders Only [facility] [address] [place] [facility] [place] [address] Ivonne Maria [facility] Lipid screening (Primary Dx); Thyroid disorder screen; Vitamin D deficiency; Impaired fasting glucose; Screening for iron deficiency anemia; Need for hepatitis C screening test; Prostate cancer screening from Last 3 Months Immunizations Immunization Administration Dates Next Due Pneumococcal Conjugate Vaccine 20 Valent 025 Surgical History Surgery Date Site/Laterality Comments NASAL SEPTUM SURGERY 02/15/1987 - 02/15/1988 DENTAL SURGERY HAND SURGERY right forearm ORIF CHOLECYSTECTOMY, LAPAROSCOPIC 12/25/2014 Abdomen/N/A LAPAROSCOPIC CHOLECYSTECTOMY; Surgeon: La Shultz MD; Location: [facility] MAIN OR; Service: General CYSTOSCOPY 10/31/2020 N/A CYSTOSCOPY; Surgeon: Aashish Barboza MD; Location: ED MAIN OR; Service: Urology BICEPS TENDON REPAIR 12/09/2020 Arm Upper/Left LEFT OPEN DISTAL BICEPS TENDON REPAIR ; Surgeon: Joan Aldridge MD; Location: [facility] MAIN OR; Service: Hand Medical devices [...] CATH 3-4X/DAY DUE TO WEAK BLEDDER Arthritis Chronic calculous cholecystitis 12/25/2014 Rupture of distal biceps ten don, left, initial encounter 12/05/2020 [facility] [id number] GERD (gastroesophageal reflu x disease) Family History Medical History Relation Name Comments Cancer Mother Colon Cancer Mother Diabetes Mother Anesth Problems Neg [...] on file Sexual Orientation Not on file Last Filed Vital Signs Vital Sign Reading Time Taken Comments Blood Pressure 118/70 11/29/2024 12:32 PM EDT Pulse 68 11/01/2024 12:03 PM EDT Temperature 36.8 C (98.2 F) 11/01/2024 12:03 PM EDT Respiratory Rate 18 11/01/2024 12:03 PM EDT Oxygen Saturation 99% 11/01/2024 12:03 PM EDT Inhaled Oxygen Concentration - - Weight 84.4 kg (186 lb) 11/29/2024 12:32 PM EDT Height 177.8 cm (5' 10 ) 11/29/2024 12:32 PM EDT Body Mass Index 26.69 11/29/2024 12:32 PM EDT Plan of Treatment Upcoming Encounters Date Type Department Care Team (Late st Contact Info) Description 01/24/2025 12:00 PM EST Appointment [facility] [address] [place] [address] Eladia Goff MD [address] [place] [address] Health Maintenance Due Date Last Done Comments Hepatitis C Screening 1976 DTaP/TDaP/Td (1 - Tdap) 1977 Cologuard 12/12/2003 Colon Cancer Screening 12/12/2003 Colonoscopy 12/12/2003 FIT 12/12/2003 Sigmoidoscopy 12/12/2003 Virtual Colonography 12/12/2003 Zoster (1 of 2) 2008 COVID-19 Vaccine ( - 2024-2 6 season) 2024 Influenza Vaccine (#1) 2024 4, 01/14/2023, 12/16/2016 Wellness Exam Medicare 11/02/2025 11/01/2024 Pneumococcal Vaccine 50+ Completed 11/01/2024 Hepatitis B Vaccine Aged Out No longe [...] Maria, RMA Medical Devices Implanted Type Area Sample Carrier Device Identifier Shelf Expiration Date Model / Serial / Lot Log [id number] - [employer] Modular Mini Fragment Tray - 1 - Screw Cortex 2.7mm X 14mm Self Tapping With T8 Stardrive Recess Stainless Steel Implanted:Qty: 1 on 07/20/2012 at [facility] Right: Miroi-STRATE: [employer] [id number] / / Log [id number] - [employer] Modular Mini Fragment Tray - 1 - Screw Cortex 2.7mm X 16mm Self Tapping With T8 Stardrive Recess Stainless Steel Implanted:Qty: 2 on 07/20/2012 at [facility] Right: M[employer]-STRATEC: [employer] 202.876 / / Log [id number] - [employer] Modular Mini Fragment Tray - 1 - Screw Cortex 2.7mm X 18mm Self Tapping With T8 Stardrive Recess Stainless Steel Implanted:Qty: 2 on 07/20/2012 at [facility] Right: M[employer]-STRATEC: [employer] 202.878 / / Log [id number] - [employer] Modular Mini Fragment Tray - 1 - Screw Locking 2.7mm X 16mm Self Tapping With T8 Stardrive Recess Implanted:Qty: 1 on 07/20/2012 at [facility] SYNTHES-STRATEC: [employer] 202.216 / / Log [id number] - [employer] Modular Mini Fragment Tray - 1 - Plate Lcp 2.7mm X 67mm 7-Hole Implanted:Qty: 1 on 07/20/2012 at [facility] Right: Ulna SYNTHES-STRATEC: SYNTHES [facility] 249.683 / / Kt Shldr W/Ac 18in Ntnl Sut Pss Wire F/Dist Bicp Rpr - [id number] Implanted:Qty: 1 on 12/09/2020 by Joan Aldridge MD at [facility] Left: Arm ARTHREX [id number] 09/14/2025 [id number] / / [id number] Insurance MEDICARE [place] PART A AND B MEDICARE SUPPLEMENT [facility] MEDICARE SUPPLEMENT Member Subscriber Plan / Payer (Ef fective 2023-Present) Name:Andre Dowling Relation to Subscriber:Self Name:Andre Dowling Payer ID:[id number] (NAIC) Group ID:Not on file Type:Not on file Address: [address] [place] [phone] MEDICARE [place] PART A [place] B [place] MED[place] SU[place]LEMENT Member Subscriber Plan / Payer (Ef fective 2023-Present) Name:Andre Dowling Relation to Subscriber:Self Name:Andre Dowling Payer ID:[id number] (NAIC) Group ID:Not on file Type:Not on file Address: [address] [place] [phone] Care Teams Switchboard Inspector Relationship Specialty Start Date End Date David Tilley MD [address] [place] [phone] PCP - General Family Medicine 11/13/24
--- NOTE | 2024-12-27 13:59 | US_ITS ---
FINAL REPORT CLINICAL HISTORY: URINE RETENTION COMPARISON: None FINDINGS: RENAL ULTRASOUND Ultrasound images of the kidneys were obtained. Limited images of the liver parenchyma demonstrates normal echogenicity. The right kidney measures 10.6 cm in length. The left kidney measures 10.0 cm in length. There is normal renal size. Mild global parenchymal atrophy is noted. No hydronephrosis. There is a questionable nonobstructing mid right renal stone measuring up to 9 mm. IMPRESSION: No obstructive changes. Possible right renal stone. CT could confirm. Reviewed, Interpreted and Dictated by Ahmet Rowe MD Transcribed by Lisbeth Patterson Authenticated and [facility]
== END 2024-12-27 23:59 | disposition home or self-care (01) ==
LOC: RAD 13:07
PROVIDERS: PCP Family Medicine; Visit Provider Urology
DX: R93.421 Abnormal radiologic findings on diagnostic imaging of right kidney (principal); R33.9 Retention of urine, unspecified
CPT/HCPCS: 76770; 76857